=== PATIENT | female | born 1975 | race Hispanic/Latino ===

== ENCOUNTER 2024-06-20 14:22 | Outpatient (CLI) | payer OTHER, SELFPAY | END 2024-06-20 14:23 | disposition home or self-care (01) | LOC: ANHAUDIO 14:23 | PROVIDERS: PCP Family Medicine; Visit Provider Otolaryngology | DX: H91.90 Unspecified hearing loss, unspecified ear (principal) | CPT/HCPCS: 92557; 92567 ==

== ENCOUNTER 2024-12-25 01:39 | Day surgery (SDC) | payer OTHER, SELFPAY ==
[2024-12-08 14:00] VITALS: BMI 38.7
--- OUTSIDE RECORDS SUMMARY | 2024-12-25 01:42 | XMS_ITS | Encounter Summary ---
Author Organization [facility] Address [facility] [place] [address] Care Team Providers Care Golf Cart Assembler Name Role Phone Jennifer Gallo MD Unavailable [phone] Sumanth Dsouza DO Primary Care Provider Pratik Tian Primary Care Provi hafsa Encounter Details Date Type Department Care Team (Late st Contact Info) Description 03/13/2021 [employer] Message Enc [facility] Family Medicine - [place] [address], [address] [place] [address] Jamie, [facility] Provider Medication Social History Tobacco Use Types Packs/Day Years Used Date Smoking Tobacco: Former Cigarettes 0.5 15 Smokeless Tobacco: Never Alcohol Use Standard Drinks/Week Comments Yes 0 (1 standard drink = 0.6 oz pur e alcohol) AUDIT-C Answer Date Recorded Frequency of Alcohol Consumption Monthly or less 12/30/2018 Average Number of Drinks Not on file 019 Frequency of Binge Drinking Not on file 12/16 PHQ-2 Answer Date Recorded PHQ-2 Score - If the patient scores above 3, please move on to questions 3-9 0 01/23/2021 Comments No Sex and Gender Information Value Date Recorded Sex Assigned at Not on file Legal Sex Female 8:16 PM CDT Gender Identity Not on file Sexual Orientation Not on file documented as of this encounter Plan of Treatment Not on file documented as of this encounter Visit Diagnoses Not on filedocumented in this encounter Additional Health Concerns Assessment Noted Time PHQ-9 Depression Total Score: 5 01/24/20 21 11:39 AM PROJECT SURVEYOR documented as of this encounter Care Teams Golf Cart Assembler Relationship Specialty Start Date End Date Sumanth Dsouza DO [address] [facility] [address] [place] [id number] PCP - General FAMILY PRACTICE 01/23/21 04/21/21 Pratik Tian APNP [address] [facility] [address] [place] [id number] PCP - General Nurse Practitioner Family 04/22/21 Jennifer Gallo MD [address] [facility] [address] [place] [id number] Referring Physician GASTROENTEROLOGY 05/31/20 documented as of this encounter
--- OUTSIDE RECORDS SUMMARY | 2024-12-25 01:42 | XMS_ITS ---
Author Organization [facility] Address [address] [place] [address] Care Team Providers Care Blueprint Cutter Name Role Phone Remedios Springer Primary Care Provider REASON FOR VISIT FP 1 month follow up & refills Social History Sex Assigned At : Social History Observation Description Sex Assigned At Female Encounters Encounter Location Date Provider Diagnosis [address] [address] 10/27/2024 Remedios Springer Plan Of Treatment Next Appt Details Provider Name:Remedios claudio, 12/29/2024 01:40:00 PM, [address] [place] [address], [place], [address], Progress Notes * Marlin WHEELEROB:[birth year] (49 yo F)Acc No.[id number]:10/27/2024 Patient: Juarez VELÁSQUEZNicole EVANS Provider: Augie Springer DNP, PMHNP-BC, COM WRITER :1975 A ge:49 Y S ex:Female Date:10/27/2024 Address:[address] [facility], [address], [place], [place]-[address] Check In:02:20 PM GLAZE WIPER Subjective: * Chief Complaints: * F P 1 month follow up & refills * Medical History: * Surgical History: * Hospitalization/Major Diagno stic Procedure: * Medications: Objective: * Vitals: Assessment: Plan: * Treatment: * Procedure Codes: * * E WIPER Sign off status: Completed true * Provider: Augie Springer DNP, PMHNP-BC, COM WRITER Date: 1 12/28/2023 Generated for Printing/Faxing/eTransmitting on: 0 12/25/2024 01:42 AM GLAZE WIPER
--- OUTSIDE RECORDS SUMMARY | 2024-12-25 01:42 | XMS_ITS | Clinical Summary ---
Author Organization [facility] Address [facility] [place] [address] Care Team Providers Care Community Arts Worker Name Role Phone Jennifer Gallo MD Unavailable [phone] Pratik Tian Primary Care Provi hafsa Allergies Active Allergy Reactions Criticality Noted Date Comments Cephalexin Anaphylaxis,Cough,Itching High 02/11/2018 Medications loratadine 10 MG tabletIndications:E nvironmental allergies Take 1 tablet (10 mg total) by mouth daily. 90 tablet 1 9 Active hydrOXYzine 25 MG tabletIndications:E nvironmental allergies Take 1 tablet (25 mg total) by mouth 3 (three) times daily as needed for Itching. 30 tablet 9 Active VITAMINS 28-0.8 MG tabletIndications:O ther fatigue Take 1 tablet by mouth daily. 90 tablet 0 Active lamoTRIgine 25 MG tabletIndications:A nxiety with depression,Severe major depression with psychotic features (CMS/HCC HHS/HCC),Bipolar 2 disorder (CMS/HCC HHS/HCC) Take 2 tablets (50 mg total) by mouth 2 (two) times daily. 60 tablet 1 0 Active vitamin D2, ergocalciferol, 42292 UNITS capsuleIndications: Vitamin D deficiency Take 1 capsule (50,000 Units total) by mouth weekly. 12 capsule 3 0 Active OLANZapine 10 MG tabletIndications:S evere major depression with psychotic features (CMS/HCC HHS/HCC) Take 1 tablet (10 mg total) by mouth nightly at bedtime. 30 tablet 0 Active IBUPROFEN 800 MG tabletIndications:I rritable bowel syndrome, unspecified type TAKE 1 TABLET BY MOUTH EVERY 6 HOURS NEEDED FOR PAIN 90 tablet 1 0 Active ALPRAZolam 1 MG tabletIndications:A nxiety Take 1 tablet (1 mg total) by mouth 3 (three) times daily as needed. FOR ANXIETY 90 tablet 1 Active OMEPRAZOLE 40 MG capsuleIndications: Gastroesophageal reflux disease TAKE ONE CAPSULE BY MOUTH DAILY 90 capsule 3 1 Active escitalopram 20 MG tablet Take 20 mg by mouth daily. 1 Active Phentermine HCl (LOMAIRA) 8 MG TabIndications:Clas s 1 obesity due to excess calories without serious comorbidity with body mass index (BMI) of 33.0 to 33.9 in adult Take 8 mg by mouth 3 (three) times daily. 90 tablet 1 Active ONDANSETRON 4 MG disintegrating tabletIndications:N ausea DISSOLVE ONE TABLET BY MOUTH EVERY 8 HOURS NEEDED FOR NAUSEA 20 tablet 1 Active Hospital, Clinic, or Other Facility Administered Medication Ordered Dose Route Frequency Start Date End Date Status EPINEPHrine (EPIPEN) injection 0.3 mgIndications:Anaphylaxis, sequela 0.3 mg IM Once 03/23/2019 Active Active Problems Problem Noted Date Diagnosed Date Severe major depression with psychotic features ([facility]/HCC [facility]) 07/25/2020 Sleep difficulties 03/07/2020 Other fatigue 03/07/2020 Snoring 03/07/2020 Anxiety with depression 03/07/2020 Irritable bowel syndrome, unspecified type 09/05 Immunizations Name Administration Dates Next Due Afluria 36 MONTHS+ (Prefilled Syringe IIV4) 06/17 Social History Tobacco Use Types Packs/Day Years [...] on file Sexual Orientation Not on file Last Filed Vital Signs Vital Sign Reading Time Taken Comments Blood Pressure 130/80 04/25/2021 9:09 AM CDT Pulse 69 04/25/2021 9:09 AM CDT Temperature 36.2 C (97.2 F) 04/25/2021 9:09 AM CDT Respiratory Rate 18 04/25/2021 9:09 AM CDT Oxygen Saturation 97% 04/25/2021 9:09 AM CDT Inhaled Oxygen Concentration - - Weight 81 kg (178 lb 9.6 oz) 04/25/2021 9:09 AM CDT Height 152.4 cm (5') 04/25/2021 9:09 AM CDT Body Mass Index 34.88 04/25/2021 9:09 AM CDT Plan of Treatment Health Maintenance Due Date Last Done Comments Cervical Cancer Screening Pa p Smear (Age 30 to 64) Every 3 Years 1974 Colorectal Cancer Screening Colonoscopy (10 Years) 1974 PHQ-2 (Physician [place]) 1986 Hepatitis C 1992 DTaP, Tdap and Td Vaccines ( 1 - Tdap) 1993 Hepatitis B Vaccines (1 of 3 - 19+ 3-dose series) 1993 Cervical Cancer Screening Pa p with HPV Testing (Age 30 to 64) Every 5 Years 2004 Cervical Cancer Screening with HPV 2004 Annual Physical 12/30/2019 12/30/2018 Mammogram Screening 07/14/2021 07/14/2019 Zoster Vaccines (1 of 2) 2024 COVID-19 Vaccine (1 - 2023-2 5 season) 2024 Influenza Adult (#1) 2024 07/15/2019 PHQ-2 (Physician [place]) 11/15/2024 Meningococcal B Vaccine Aged Out No l onger eligible based on patient's age to complete this topic Meningococcal Vaccine Aged Out No shantelle nancy eligible based on patient's age to complete this topic Pneumococcal Vaccine: Pediat rics (0 to 5 Years) and At-Risk Patients (6 to 64 Years) Aged Out No longer eligi ble based on patient's age to complete this topic RSV Immunizations Under 20 Months Aged Out No longer eligible based on patient's age to complete this topic Procedures Procedure Name Priority Date/Time Associated Diagnosis Comments MAMMOGRAM GENERIC (SCAN ORDER) Routine 07/14/2019 from Last 3 Months or Most Recently Relevant to Health Maintenance Results * MAMMOGRAM (07/14/2019) Anatomical Region Laterality Modality Other us Documents Scanned SCANNING Edited Result - Final from Last 3 Months or Most Recently Relevant to Health Maintenance Care Teams Community Arts Worker Relationship Specialty Start Date End Date Pratik Tian APNP [address] [facility] [address] [place] [address] PCP - General Nurse Practitioner Family 04/22/21 Jennifer Gallo MD [address] [facility] [address] [place] [address] Referring Physician GASTROENTEROLOGY 05/31/20
--- OUTSIDE RECORDS SUMMARY | 2024-12-25 01:43 | XMS_ITS | Clinical Summary ---
Author Organization [place] [address] [facility] Address [address] [place] [id number] Care Team Providers Care Assembler [employer]iler Name Role Phone Gene Kenyon MD Primary Care Provider [phone] Remedios Springer NP Unavailable [phone] Allergies Active Allergy Reactions Criticality Noted Date Comments Cephalexin Hives Medium 11/13/2024 Medications ALPRAZolam (Xanax) 1 mg tablet Take 1 tablet (1 mg total) by mouth every 12 hours 8 Active ARIPiprazole (ABILIFY) 5 mg tablet Active atorvastatin (LIPITOR) 10 mg tablet Take 1 tablet (10 mg total) by mouth nightly Active doxepin (SINEquan) 10 mg capsule Active Trulicity 3 mg/0.5 mL pen injector Inject 0.5 mL (3 mg total) under the skin once a week FRIDAYS Active EPINEPHrine 0.3 mg/0.3 mL auto-injection syringe Inject 0.3 mL (0.3 mg total) into the muscle as instructed once 9 Active ergocalciferol (VITAMIN D) 50,000 unit capsule 0 Active escitalopram (LEXAPRO) 20 mg tablet Take 1 tablet every day by oral route. 1 Active famotidine (PEPCID) 20 mg tablet TK 1 T PO D FOR 5 DAYS 8 Active fexofenadine (AMNA) 60 mg tablet 1 tablet (60 mg total) 2 (two) times a day Active hydrOXYzine (ATARAX) 25 mg tablet Take 1 tablet (25 mg total) by mouth 4 (four) times a day 9 Active lamoTRIgine (LaMICtal) 100 mg tablet daily Active lisinopriL (PRINIVIL,ZEST RIL) 2.5 mg tablet Active metFORMIN (GLUCOPHAGE) 1,000 mg tablet Take 1 tablet twice a day by oral route. Active OLANZapine (ZyPREXA) 10 mg tablet Take 1 tablet (10 mg total) by mouth daily 1 Active omeprazole (PriLOSEC) 40 mg capsule Take 1 capsule (40 mg total) by mouth daily 1 Active blood-glucose sensor (FreeStyle Luly 3 Sensor) device Activ e docusate sodium (COLACE) 100 mg capsuleIndicat ions:constipat ion Take 1 capsule (100 mg total) by mouth 2 (two) times a day as needed for constipation 14 capsule 5 Active HYDROcodone-ac etaminophen (NORCO) 5-325 mg per tabletIndicati ons:Pain Take 1 tablet by mouth every 4 (four) hours as needed for pain (pain) 8 tablet 5 Active medroxyPROGEST ERone (PROVERA) 5 mg tablet Take 2 tablets (10 mg total) by mouth 2 (two) times a day for 10 days 40 tablet 4 025 Discontin ued(Stop Taking at Discharge ) ketorolac (TORADOL) 10 mg tablet Take 1 tablet (10 mg total) by mouth every 6 (six) hours as needed for pain 20 tablet 4 025 Discontin ued(Stop Taking at Discharge ) Active Problems Problem Noted Date Diagnosed Date Menorrhagia with regular cycle 12/13/2024 Bipolar I disorder 11/20/2024 Irritable bowel syndrome 09/05/2019 JOVI (generalized anxiety disorder) 12/01/2018 Gastroesophageal reflux disease without esophagi tis 12/01/2018 Resolved Problems Problem Noted Date Diagnosed Date Resolved Date Amenorrhea 09/10/2020 12/13/2024 Overview (11/20/2024): Amenorrhea, unspecified; Severity: Moderate Progress: Stable Added By: Rai Marcelo Add to Current Problems: YES ProblemStatus: Current Severe major depression with psychotic features 07/25/2020 11/20/2024 Encounters Date Type Department Care Team Description 12/13/2024 7:30 AM BOX COVERER HAND - 12/13/2024 9:30 AM BOX COVERER HAND Surgery [facility] OR [address] [place] [address] Trina Fabian MD HYSTEROSCOPY, DILATION WITH hydrothermal ablation, attempted NOVASURE ABLATION, 12/13/2024 7:29 AM BOX COVERER HAND Anesthesia Event [facility] OR [address] [place] [address] Marshall Farrell MD Boivin, James R., MD 12/13/2024 5:39 AM BOX COVERER HAND - 12/13/2024 12:17 PM BOX COVERER HAND Hospital Encounter [facility] OR [address] [place] [id number] Trina Fabian MD History of menorrhagia; Admission for sterilization Discharge Disposition: Discharge to home or self care 12/11/2024 2:20 PM BOX COVERER HAND Pre-Admission Testing [facility] Pre Admit Testing [address] [place] [id number] Pre-op testing (Primary Dx) 11/13/2024 10:03 PM BOX COVERER HAND - 11/14/2024 Emergency [facility] Emergency Department [address] [place] [id number] Vaginal bleeding (Primary Dx); Uterine mass; Ovarian mass Discharge Disposition: Discharge to home or self care from Last 3 Months Surgical History Surgery Date Site/Laterality Comments REDUCTION MAMMAPLASTY early 20s LIPOSUCTION x5 ABDOMINOPLASTY early 20s Medical History Medical History Date Comments Amenorrhea 09/10/2020 Amenorrhea, unsp ecified; Severity: Moderate Progress: Stable Added By: Rai Marcelo Add to Current Problems: YES ProblemStatus: Current Bipolar I disorder (HCC) 11/20/2024 JOVI (generalized anxiety disorder) 12/01/2018 Gastroesophageal reflux dise ase without esophagitis 12/01/2018 Irritable bowel syndrome 09/05/2019 Severe major depression with psychotic features (HCC) 07/25/2020 PONV (postoperative nausea and vomiting) Type 2 diabetes mellitus (HCC) Anxiety Motion sickness Social History Tobacco Use Types Packs/Day Years Used Date Smoking Tobacco: Former Cigarettes 0.5 29 S tarted: 1985 Smokeless Tobacco: Never AUDIT-C Answer Date Recorded Q1: How often do you have a drink containing alc ohol? 2-4 times a month 12/13/2024 Q2: How many drinks containi ng alcohol do you have on a typical day when you are drinking? 1 or 2 12/13/2024 Q3: How often do you have si x or more drinks on one occasion? Never 12/13/2024 Personal Safety Answer Date Recorded Have you ever been in or are you currently in a harmful physical or emotional relationship or is someone making you feel afraid or unsafe? Denies 12/13/2024 Comments No Sex and Gender Information Value Date Recorded Sex Assigned at Not on file Legal Sex Female 8:34 PM BOX COVERER HAND Gender Identity Not on file Sexual Orientation Not on file Obstetrics History Para Term AB IAB SAB Ectopic Multiple Livin g Live Births 1 1 1 Date Outcome GA Total Labor Labor/2nd/3rd Weight Sex Type Anes PTL Heidy A1 A5 Name Clin Term Last Filed Vital Signs Vital Sign Reading Time Taken Comments Blood Pressure 122/82 12/13/2024 12:10 PM BOX COVERER HAND Pulse 85 12/13/2024 12:10 PM BOX COVERER HAND Temperature 36.8 C (98.2 F) 12/13/2024 10:40 AM BOX COVERER HAND Respiratory Rate 16 12/13/2024 12:1 0 PM BOX COVERER HAND Oxygen Saturation 98% 12/13/2024 12: 10 PM BOX COVERER HAND Inhaled Oxygen Concentration - - Weight 92.4 kg (203 lb 11.2 oz) 12/13/2024 5:49 AM BOX COVERER HAND Height 152.4 cm (5') 12/13/2024 5:49 AM BOX COVERER HAND Body Mass Index 39.78 12/13/2024 5:49 AM BOX COVERER HAND Plan of Treatment Health Maintenance Due Date Last Done Comments Cervical Cancer Screening 1975 Colon Cancer Screening-Colonoscopy 1975 Depression Screening 1975 Hepatitis C Screening 1974 Hepatitis B Screening 1992 Regular Well Visit/Exam 18-64 1992 Zoster Vaccine (2 of 2) 07/12/2024 05/17/2024 Influenza Vaccine (#1) 2024 07/15/2019 Breast Cancer Screening-Mammogram 03/16/2025 03/16/2024, 07/14/2019, 03/28/2018, Additional history exists DTaP/Tdap/Td Vaccine (2 - Td or Tdap) 05/17/2034 05/17/2024 Pneumococcal vaccine <65 Aged Out No longer eligible based on patient's age to complete this topic Procedures Procedure Name Priority Date/Time Associated Diagnosis Comments POCT GLUCOSE DEVICE Routine 12/13/2024 9 :29 AM BOX COVERER HAND SURGICAL PATHOLOGY Routine 12/13/2024 8: 12 AM BOX COVERER HAND History of menorrhagia Admission for sterilization DC AN PROCEDURE PLACEHOLDER Routine 12/13/2024 7:43 AM BOX COVERER HAND DC AN ELECTIVE ENDOTRACHEAL AIRWAY Routine 12/13/2024 7:43 AM BOX COVERER HAND LAPAROSCOPIC SALPINGECTOMY 12/13/2024 7:29 AM BOX COVERER HAND MENORRHAGIA,UNDESIR ED FERTILITY ABLATION UTERINE HYSTEROSCOPY - NOVASURE 12/13/2024 7:29 AM BOX COVERER HAND MENORRHAGIA,UNDESIR ED FERTILITY POCT GLUCOSE DEVICE Routine 12/13/2024 7 :20 AM BOX COVERER HAND POCT HCG, URINE Routine 12/13/2024 6:30 AM BOX COVERER HAND ANTIBODY SCREEN Routine 12/11/2024 2:39 PM BOX COVERER HAND Pre-op testing ABO/RH Routine 12/11/2024 2:39 PM BOX COVERER HAND Pre-op testing CBC WITHOUT DIFFERENTIAL Routine 12/11/2024 2:39 PM BOX COVERER HAND Pre-op testing TYPE AND SCREEN Routine 12/11/2024 2:39 PM BOX COVERER HAND Pre-op testing CT ABDOMEN PELVIS W CONTRAST ED 11/13/2024 11:05 PM BOX COVERER HAND POCT HCG, URINE Routine 11/13/2024 10:45 PM BOX COVERER HAND B ABO / RH CONFIRMATION TESTING STAT 11/13/2024 10:15 PM BOX COVERER HAND EGFR STAT 11/13/2024 7:39 PM BOX COVERER HAND DIFFERENTIAL AUTO STAT 11/13/2024 7:3 9 PM BOX COVERER HAND ANTIBODY SCREEN Timed 11/13/2024 7:39 PM BOX COVERER HAND ABO/RH Timed 11/13/2024 7:39 PM BOX COVERER HAND TYPE AND SCREEN Timed 11/13/2024 7:39 PM BOX COVERER HAND COMPREHENSIVE METABOLIC PANEL STAT 11/13/2024 7:39 PM BOX COVERER HAND CBC WITH AUTO DIFFERENTIAL STAT 11/13/2024 7:39 PM BOX COVERER HAND SCREENING MAMMOGRAM BILATERAL W EL Schedule Routine, Read Routine (OP Routine) 03/16/2024 2:59 PM CDT Encounter for other screening for malignant neoplasm of breast from Last 3 Months or Most Recently Relevant to Health Maintenance Results * POCT glucose (12/13/2024 9:29 AM BOX COVERER HAND) Glucose, POC 159 70 - 199 mg/dL Comment:Testing performed by : [facility], [address] [place] [address]., [id number] Glucose comment 1 Use This Result CESAR PEREZ Comment:Testing performed by : [facility], [address] [place] [address]., [id number] Blood 12/13/2024 9:29 AM BOX COVERER HAND 12/13/2024 9:29 AM BOX COVERER HAND us Trina Fabian MD LAB POCT ORDERABLES - DEVICE Fi nal Result CESAR PEREZ [address] [facility] Department [place] [address] * Surgical pathology (12/13/2024 8:12 AM BOX COVERER HAND) Tissue (Fallopian tube, sterilization) 12/13/2024 8:12 AM BOX COVERER HAND Narrative PATHOLOGY [facility] - 12/14/2024 4:25 PM BOX COVERER HAND [facility] Department of Pathology [address] [place] [address] Note to Patients: This report may contain a detailed description of human tissue sent by a health care provider to the laboratory for pathologic evaluation. The content of this report is essential for diagnosis and may provide important critical findings. This information may be unfamiliar to patients to review without a medical professional present. It is advised that the patient review this report in the presence of a health care provider who can answer questions and explain the details. Final Report Patient Name: LAURA STYLES : 1975 (Age: 49) Gender: F Address: [address] [place] [address] Hospital #: [id number] Service: Surgery Location: Patient Type: [facility] OUTPATIENT Taken: 12/13/2024 Received: 12/13/2024 Accessioned: 12/13/2024 Reported: 12/14/2024 Physician(s): Raphael Meléndez M.D. Diagnosis: Fallopian tubes, bilateral, salpingectomy - One fallopian tube with paratubal cyst - Other fallopian tube with no histopathologic abnormality - Complete cross sections identified x 2 Veronique Salazar MD PhD Report Electronically Reviewed and Signed Out By Veronique Salazar MD PhD 12/14/2024 16:25:59 Specimen(s) Received: A: bilateral fallopian tubes Microscopic Description: Unless gross-only is specified, the final diagnosis for each specimen is based on a microscopic examination of each tissue sample. Clinical History: The patient is a 49-year-old woman with menorrhagia and undesired fertility. Operative procedure: Hysteroscopy, dilation and curettage with ablation, and bilateral salpingectomy. Gross Description Received in a single formalin filled container labeled with the patient's identifiers and bilateral fallopian tubes are two fragmented, fimbriated fallopian tubes (10.8 cm in combined length by 0.5 cm in diameter and 9.6 cm in combined length by 0.5 cm in diameter). One of the fimbriated portions of tubing has an attached, collapsed saccular structure of glistening, rubbery, pink-borja membranous tissue (5.0 x 3.5 x 1.2 cm). There are no papillary projections or solid mass areas grossly appreciated. Sections show pinpoint lumens and membranous tissue. In 3 cassettes as follows: A1-A2 Fallopian tubes, A3 Membranous tissue. Jar 1. [id number]/12/13/2024 12:00 Niurka Cortes MS, PA (ASC Microscopic slide review and interpretation for this case was performed at [facility], Department of Surgical Pathology, [address] [facility] [place], [address], [place] [id number] CLIA # [id number] us Trina Fabian MD LAB PATHOLOGY ORDERABLES Final Result PATHOLOGY [facility] * DC AN ELECTIVE ENDOTRACHEAL AIRWAY, DC AN PROCEDURE PLACEHOLDER (12/13/2024 7:43 AM BOX COVERER HAND) Narrative Tai Roberts CRNA - 12/13/2024 7:43 AM BOX COVERER HAND Tai Roberts CRNA 12/13/2024 7:43 AM Airway Patient location: OR Urgency: elective Indications for airway management: anesthesia Difficult airway: no Staff: Placed by: PHOTOGRAPHIC COLORIST: Tai Roberts CRNA Emergent airway documentation: Risks and benefits discussed: yes Consent obtained: yes Consent given by: patient Airway prep: Preoxygenated: yes Patient position: sniffing Mask difficulty assessment: 1 - vent by mask Sedation level during airway: GA Final airway details: Final airway type: endotracheal airway Tube type: ETT ETT size: 8.0 mm Cuffed: yes Technique used for successful ETT placement: direct laryngoscopy Devices/Methods used in placement: stylet Insertion site: oral Blade type: Squires Blade size: 2 Cormack-Lehane (direct): grade I - full view of glottis Cuff volume: 7 mL Cuff inflated with: air ETT to teeth: 23 cm Placement verified by: auscultation and CO2 detection Airway secured with: other (pink tape) Number of attempts: 1 us Marshall Farrell MD ANESTHESIA ORDERABLES Final Resu lt * POCT glucose (12/13/2024 7:20 AM BOX COVERER HAND) Glucose, POC 123 70 - 199 mg/dL Comment:Testing performed by : [address] [address] Blood 12/13/2024 7:20 AM BOX COVERER HAND 12/13/2024 7:20 AM BOX COVERER HAND Trina Fabian MD LAB POCT ORDERABLES - DEVICE Fi nal Result Performing Organization Address [facility]/ZIP Co de Phone Number [id number] [place] [address] * POCT hCG, urine (12/13/2024 6:30 AM BOX COVERER HAND) [facility] HCG, ur, POC Negative Negative Lot Number [id number] QC Backgroud Clear Acceptable QC Control Line Acceptable Urine 12/13/2024 6:30 AM BOX COVERER HAND Jemal Gong MD POINT OF CARE TEST ORDERABLES Final Result * ABO/Rh (12/11/2024 2:39 PM BOX COVERER HAND) [facility] ABO/Rh O Positive Comment:Testing performed by : [facility], [address] [place] [address]., [address] Blood 12/11/2024 2:39 PM BOX COVERER HAND 12/11/2024 2:43 PM BOX COVERER HAND Narrative CESAR - 12/11/2024 3:27 PM BOX COVERER HAND PRE SURGICAL TESTING ONLY--12/13/2024-HYSTEROSCOPY, DILATION AND CURETTAGE WITH NOVASURE ABLATION: LAPAROSCOPIC BILATERAL SALPINGECTOMY: -Surgeons and Role: * Trina Fabian MD - Primary- Has the patient had Daratumumab or Isatuximab in the past 6 months?->Unknown Trina Fabian MD LAB BLOOD BANK TEST ORDERABLES Final Result Performing Organization Address [facility]/ZIP Co de Phone Number [address] [place] [address] * CBC without differential (12/11/2024 2:39 PM BOX COVERER HAND) [facility] WBC 8.4 3.8 - 9.9 K/cumm Comment:Testing performed by : [address], [address] Hgb 13.2 11.9 - 15.5 g/dL CESAR Comment:Testing performed by : [address], [address] Hct 39.8 35.6 - 45.5 % CESAR Comment:Testing performed by : [address], [address] Plt 381 150 - 400 K/cumm CESAR Comment:Testing performed by : [address], [address] MPV 9.6 9.1 - 12.3 fL CESAR Comment:Testing performed by : [address], [address] RBC 4.73 3.90 - 5.20 M/cumm CESAR Comment:Testing performed by : [address], [address] MCV 84.1 81.3 - 96.4 fL CESAR Comment:Testing performed by : [address], [address] MCH 27.9 27.1 - 33.3 pg CESAR Comment:Testing performed by : [address], [address] MCHC 33.2 32.3 - 35.7 g/dL CESAR Comment:Testing performed by : [address], [address] RDW CV 12.1 11.1 - 14.9 % CESAR Comment:Testing performed by : [address], [address] RDW SD 36.7 35.7 - 48.1 fL CESAR Comment:Testing performed by : [address], [address] NRBC abs 0.00 0.00 - 0.01 K/cumm CESAR Comment:Testing performed by : [facility], [address] [place] [address]., [address] Blood 12/11/2024 2:39 PM BOX COVERER HAND 12/11/2024 2:43 PM BOX COVERER HAND Narrative CESAR - 12/11/2024 2:45 PM BOX COVERER HAND PRE SURGICAL TESTING ONLY--12/13/2024-HYSTEROSCOPY, DILATION AND CURETTAGE WITH NOVASURE ABLATION: LAPAROSCOPIC BILATERAL SALPINGECTOMY: -Surgeons and Role: * Trina Fabian MD - Primary-@ANPROCEDURE@ Trina Fabian MD LAB BLOOD ORDERABLES Final Resu lt Performing Organization Address [facility] Co de Phone Number TULIONAT [address] [facility] [place] [address] * Antibody screen (12/11/2024 2:39 PM BOX COVERER HAND) Luis Fernando, indirect, Gel Interpretation Negative ABSC Comment:Testing performed by : [facility], [address] [place] [address]., [address] Blood 12/11/2024 2:39 PM BOX COVERER HAND 12/11/2024 2:43 PM BOX COVERER HAND Narrative CESAR - 12/11/2024 3:27 PM BOX COVERER HAND PRE SURGICAL TESTING ONLY--12/13/2024-HYSTEROSCOPY, DILATION AND CURETTAGE WITH NOVASURE ABLATION: LAPAROSCOPIC BILATERAL SALPINGECTOMY: -Surgeons and Role: * Trina Fabian MD - Primary- Has the patient had Daratumumab or Isatuximab in the past 6 months?->Unknown Trina Fabian MD LAB BLOOD BANK TEST ORDERABLES Final Result Performing Organization Address [facility] Co de Phone Number [place] [phone] [facility] [place] [address] * CT Abdomen Pelvis W Contrast (11/13/2024 11:05 PM BOX COVERER HAND) Anatomical Region Laterality Modality Body N/A Computed Tomogra phy 11/13/2024 11:0 9 PM BOX COVERER HAND Narrative 11/13/2024 11:16 PM BOX COVERER HAND EXAM DESCRIPTION: CT ABDOMEN PELVIS W CONTRAST REASON FOR STUDY: vaginal bleeding Pt states has been having vaginal bleeding on and off x 3 months, pt states is bleeding through a tampon every 30 mins, pt states has been seen by OB for this and was told to come to ED if bleeding was that bad , pt states bleeding was stopped with meds twice , pt states is supposed to have a procedure in Nov but I can't wait TECHNIQUE: CT scan of the abdomen and pelvis performed with intravenous and without oral contrast using helical scanning technique with dynamic intravenous contrast injection. Reconstructed coronal and sagittal MPR images reviewed. All images stored on PACS. Automated exposure control was used as a dose optimization technique for this examination. CONTRAST TYPE/DOSE: 100mL of IOVERSOL 350 MG IODINE/ML INTRAVENOUS SYRINGE injected via intravenous COMPARISON: None FINDINGS: LOWER CHEST: No significant pulmonary abnormalities. No effusion. LIVER: 4 cm simple appearing cyst is seen in the left lobe of the liver. The liver otherwise appears unremarkable. GALLBLADDER: Unremarkable BILE DUCTS: No intrahepatic or extrahepatic ductal dilatation. SPLEEN: Normal size. No focal lesions. PANCREAS: No identified cystic or solid masses. No significant calcifications. No adjacent inflammation or peripancreatic fluid collections. Pancreatic duct not dilated. ADRENALS: Normal. KIDNEYS/URINARY TRACT: No identified significant cystic or solid masses. No visualized stones. No hydronephrosis or hydroureter. Symmetric enhancement. The bladder is decompressed and appears unremarkable GI: No dilated bowel loops. No obvious wall thickening. Normal appendix. No significant diverticular disease. PERITONEUM: No ascites or free air. RETROPERITONEUM: No mass or adenopathy. REPRODUCTIVE: The uterus appears enlarged measuring 13 cm X 10 cm X 8.6 cm. The uterus appears thickened and heterogeneous. While this could represent fibroids, endometrial neoplasia could be a concern. The addition, there is 8 cm cystic appearing mass to the right of the upper uterus which may represent right ovarian cysts. Ovarian neoplasia is a concern. VASCULATURE: No abdominal aortic aneurysm. Mesenteric vessels appear to be perfused. MUSCULOSKELETAL: No significant abnormality. OTHER: No other abnormality. IMPRESSION: Enlarged heterogeneous uterus. While this could represent fibroids, endometrial neoplasia could be a concern. 8 cm cystic appearing mass to the right of the upper uterus may represent right ovarian cyst. Ovarian neoplasia is a concern. Neurodiagnostic Tech evaluation of these findings is recommended. Simple appearing 4 cm cyst left lobe of the liver. THIS IS AN ELECTRONICALLY VERIFIED FINAL REPORT 11/13/2024 11:16 PM - Electronically signed by Lokesh Dotson M.D. KH: SONIA Report ID: [id number] Reading Location: [place] [address] Procedure Note Lokesh Dotson MD - 11/13/2024 EXAM DESCRIPTION: CT ABDOMEN PELVIS W CONTRAST REASON FOR STUDY: vaginal bleeding Pt states has been having vaginal bleeding on and off x 3 months, pt states is bleeding through a tampon every 30 mins, pt states has been seenby OB for this and was told to come to ED if bleeding was that bad , ptstates bleeding was stopped with meds twice , pt states is supposed to have a procedure in Nov but I can't wait TECHNIQUE: CT scan of the abdomen and pelvis performed with intravenousand without oral contrast using helical scanning technique with dynamic intravenous contrast injection. Reconstructed coronal and sagittal MPRimages reviewed. All images stored on PACS. Automated exposure control was usedas a dose optimization technique for this examination. CONTRAST TYPE/DOSE: 100mL of IOVERSOL 350 MG IODINE/ML INTRAVENOUSSYRINGE injected via intravenous COMPARISON: None FINDINGS: LOWER CHEST: No significant pulmonary abnormalities. Noeffusion. LIVER: 4 cm simple appearing cyst is seen in the left lobe of the liver. The liver otherwise appears unremarkable. GALLBLADDER: Unremarkable BILE DUCTS: No intrahepatic or extrahepatic ductal dilatation. SPLEEN: Normal size. No focal lesions. PANCREAS: No identified cystic or solid masses. No significant calcifications. No adjacent inflammation or peripancreatic fluidcollections. Pancreatic duct not dilated. ADRENALS: Normal. KIDNEYS/URINARY TRACT: No identified significant cystic or solid masses.No visualized stones. No hydronephrosis or hydroureter. Symmetricenhancement. The bladder is decompressed and appears unremarkable GI: No dilated bowel loops. No obvious wall thickening. Normalappendix. No significant diverticular disease. PERITONEUM: No ascites or free air. RETROPERITONEUM: No mass or adenopathy. REPRODUCTIVE: The uterus appears enlarged measuring 13 cm X 10 cm X 8.6cm. The uterus appears thickened and heterogeneous. While this couldrepresent fibroids, endometrial neoplasia could be a concern. The addition, thereis 8 cm cystic appearing mass to the right of the upper uterus which mayrepresent right ovarian cysts. Ovarian neoplasia is a concern. VASCULATURE: No abdominal aortic aneurysm. Mesenteric vessels appearto be perfused. MUSCULOSKELETAL: No significant abnormality. OTHER: No other abnormality. IMPRESSION: Enlarged heterogeneous uterus. While this could represent fibroids, endometrial neoplasia could be a concern. 8 cm cystic appearing mass to the right of the upper uterus may represent right ovarian cyst. Ovarian neoplasia is a concern. Neurodiagnostic Tech evaluation of these findings is recommended. Simple appearing 4 cm cyst left lobe of the liver. THIS IS AN ELECTRONICALLY VERIFIED FINAL REPORT 11/13/2024 11:16 PM - Electronically signed by Lokesh Dotson M.D. KH: SONIA Report ID: [id number] Reading Location: [place] [address] Luis A Guzman NP IMG CT PROCEDURES Final Result * POCT hCG, urine (11/13/2024 10:45 PM BOX COVERER HAND) HCG, ur, POC Negative Negative Lot Number [id number] QC Backgroud Clear Acceptable QC Control Line Acceptable Urine 11/13/2024 10:4 5 PM BOX COVERER HAND Luis A Guzman NP POINT OF CARE TEST ORDERABLES Fi nal Result * ABO / Rh Confirmation Testing (11/13/2024 10:15 PM BOX COVERER HAND) ABO/Rh Confirmation O Positive B Comment:Testing performed by : [facility], [address] [place] [address]., [id number] Blood 11/13/2024 10:1 5 PM BOX C[facility]ER HAND 11/13/2024 10:20 PM BOX C[employer]ER HAND Luis A Guzman NP LAB BLOOD ORDERABLES Final Resul t [facility] [address] [facility] Department [place] [address] [facility] * eGFR (11/13/2024 7:39 PM BOX COVERER HAND) eGFR >90 >=60 mL/min/1. 73 m2 Comment: Interpretive Data Reference Interval Normal >/= 90 mL/min/1.73m2 Mildly decreased* 60 - 89 mL/min/1.73m2 Mildly to moderately decreased 45 - 59 mL/min/1.73m2 Moderately to severely decreased 30 - 44 mL/min/1.73m2 Severely decreased 15 - 29 mL/min/1.73m2 Kidney Failure < 15 mL/min/1.73m2 *Relative to young adult level Estimated glomerular filtration rate is determined by the 2020 CKD-EPI equation recommended by the National Kidney [employer] (A Unifying Approach to GFR Estimation: Recommendations of the NKF-ASK Task Force on Reassessing the Inclusion of Race in Diagnosing Kidney Disease, JASN 2020). The CKD-EPI equation should not be used for patients with unstable renal function and has not been validated in children and those over 70. Current interpretive data was last reviewed 2021. Testing performed by: [address] [address] Blood 11/13/2024 7:39 PM BOX C[employer]ER HAND 11/13/2024 7:41 PM BOX COVERER HAND us Luis A Guzman NP LAB BLOOD ORDERABLES Final Resul t [facility] [address] [facility] Department [place] [address] * (ABNORMAL) Differential, auto (11/13/2024 7:39 PM BOX COVERER HAND) Pathologist [facility] Neutrophil abs 6.8(H) 1.5 - 6.5 K/cumm Comment:Testing performed by : [address] [address] Imm gran abs 0.0 0.0 - 0.1 K/cumm CESAR PEREZ Comment:Testing performed by : [address] [address] Lymphocyte abs 3.2 0.8 - 3.3 K/cumm CESAR PEREZ Comment:Testing performed by : [address] [address] Monocyte abs 0.4 0.2 - 0.8 K/cumm CESAR Comment:Testing performed by : [address] [address] Eosinophil abs 0.2 0.0 - 0.5 K/cumm CESAR Comment:Testing performed by : [address] [address] Basophil abs 0.1 0.0 - 0.1 K/cumm CESAR Comment:Testing performed by : [address] [address] Neutrophil pct 63.6 % [facility] Comment: Interpretive Data Percent cell count reference ranges are not reported, since discordance with absolute values may lead to misinterpretation of CBC data. Current Interpretive Data was last revised on 2018. Testing performed by: [address] [address] Imm gran pct 0.4 % [facility] Comment: Interpretive Data Percent cell count reference ranges are not reported, since discordance with absolute values may lead to misinterpretation of CBC data. Current Interpretive Data was last revised on 2018. Testing performed by: [address] [address] Lymphocyte pct 29.5 % [facility] Comment: Interpretive Data Percent cell count reference ranges are not reported, since discordance with absolute values may lead to misinterpretation of CBC data. Current Interpretive Data was last revised on 2018. Testing performed by: [address] [address] Monocyte pct 3.7 % [facility] Comment: Interpretive Data Percent cell count reference ranges are not reported, since discordance with absolute values may lead to misinterpretation of CBC data. Current Interpretive Data was last revised on 2018. Testing performed by: [address] [address] Eosinophil pct 2.1 % [facility] Comment: Interpretive Data Percent cell count reference ranges are not reported, since discordance with absolute values may lead to misinterpretation of CBC data. Current Interpretive Data was last revised on 2018. Testing performed by: [address] [address] Basophil pct 0.7 % CESAR PEREZ Comment: Interpretive Data Percent cell count reference ranges are not reported, since discordance with absolute values may lead to misinterpretation of CBC data. Current Interpretive Data was last revised on 2018. Testing performed by: [address] [address] Blood 11/13/2024 7:39 PM BOX C[employer]ER HAND 11/13/2024 7:41 PM BOX COVERER HAND us Luis A Guzman NP LAB BLOOD ORDERABLES Final Resul t CESAR PEREZ [facility] [facility] Department [place] [address] * (ABNORMAL) CBC with auto differential (11/13/2024 7:39 PM BOX COVERER HAND) WBC 10.7(H) 3.8 - 9.9 K/cumm Comment:Testing performed by : [address] [address] Hgb 12.5 11.9 - 15.5 g/dL CESAR PEREZ Comment:Testing performed by : [address] [address] Hct 37.9 35.6 - 45.5 % CESAR PEREZ Comment:Testing performed by : [address] [address] Plt 354 150 - 400 K/cumm CESAR PEREZ Comment:Testing performed by : [address] [address] MPV 9.9 9.1 - 12.3 fL CESAR PEREZ Comment:Testing performed by : [address] [address] RBC 4.39 3.90 - 5.20 M/cumm CESAR PEREZ Comment:Testing performed by : [address] [address] MCV 86.3 81.3 - 96.4 fL CESAR PEREZ Comment:Testing performed by : [address] [address] MCH 28.5 27.1 - 33.3 pg CESAR PEREZ Comment:Testing performed by : [address] [address] MCHC 33.0 32.3 - 35.7 g/dL CESAR PEREZ Comment:Testing performed by : [address] [address] RDW CV 12.2 11.1 - 14.9 % CESAR Comment:Testing performed by : [address] [address] RDW SD 38.4 35.7 - 48.1 fL CESAR Comment:Testing performed by : [address] [address] NRBC abs 0.00 0.00 - 0.01 K/cumm CESAR Comment:Testing performed by : [address] [address] Blood 11/13/2024 7:39 PM BOX COVERER HAND 11/13/2024 7:41 PM BOX COVERER HAND Luis A Guzman NP LAB BLOOD ORDERABLES Final Resul t Performing Organization Address [facility] de Phone Number [facility] [address] [facility] Department [place] [address] * ABO/Rh (11/13/2024 7:39 PM BOX COVERER HAND) ABO/Rh O Positive Comment:Testing performed by : [address] [address] Blood 11/13/2024 7:39 PM BOX COVERER HAND 11/13/2024 7:41 PM BOX COVERER HAND Narrative CESAR - 11/13/2024 8:50 PM BOX COVERER HAND Has the patient had Daratumumab or Isatuximab in the past 6 months?->Unknown Luis A Guzman NP LAB BLOOD BANK TEST ORDERABLES F inal Result Performing Organization Address City/[facility] de Phone Number [address] [place] [address] * Antibody screen (11/13/2024 7:39 PM BOX COVERER HAND) Pathologist [facility] Luis Fernando, indirect, Gel Interpretation Negative ABSC Comment:Testing performed by : [address] [address] Blood 11/13/2024 7:39 PM BOX COVERER HAND 11/13/2024 7:41 PM BOX COVERER HAND Narrative [facility] - 11/13/2024 8:50 PM BOX COVERER HAND Has the patient had Daratumumab or Isatuximab in the past 6 months?->Unknown Luis A Guzman NP LAB BLOOD BANK TEST ORDERABLES F inal Result [address] [address] * Comprehensive metabolic panel (11/13/2024 7:39 PM BOX COVERER HAND) [facility] Sodium 139 135 - 145 mmol/L Comment:Testing performed by : [address] [address] Potassium, pl 3.7 3.3 - 4.9 mmol/L CESAR Comment:Testing performed by : [address] [address] Chloride 105 97 - 110 mmol/L CESAR Comment:Testing performed by : [address] [address] CO2 22 22 - 32 mmol/L CESAR Comment:Testing performed by : [address] [address] Anion gap 12 2 - 15 mmol/L CESAR Comment:Testing performed by : [address] [address] BUN 16 6 - 25 mg/dL CESAR Comment:Testing performed by : [address] [address] Creatinine 0.70 0.60 - 1.10 mg/dL CESAR Comment:Testing performed by : [address] [address] Glucose 191 70 - 199 mg/dL CESAR Comment: Interpretive Data Fasting glucose >/= 126 mg/dl is diagnostic for diabetes. Fasting is defined as no caloric intake for at least 8 hours. Fasting glucose between 100 mg/dl to 125 mg/dl is diagnostic of prediabetes. In a patient with classic symptoms of hyperglycemia or hyperglycemic crisis, a random glucose >/= 200 mg/dl is diagnostic for diabetes. In the absence of unequivocal hyperglycemia, results should be confirmed by repeat testing. The classification and Diagnosis of Diabetes Diabetes Care 2021; 46: S19-S40. Current interpretive data was last revised 2022. Testing performed by: [address] [address] Calcium 9.1 8.5 - 10.3 mg/dL CESAR Comment:Testing performed by : [address] [address] Bilirubin, total 0.3 0.1 - 1.2 mg/dL CESAR Comment:Testing performed by : [address] [address] Protein, pl 7.4 6.5 - 8.5 g/dL CESAR Comment:Testing performed by : [address] [address] Albumin 4.3 3.5 - 5.0 g/dL CESAR Comment:Testing performed by : [address] [address] Alk phos 68 40 - 130 Units/L CESAR Comment:Testing performed by : [address] [address] ALT 26 7 - 45 Units/L [facility] Comment:Testing performed by : [address] [address] AST 20 10 - 45 Units/L CESAR Comment:Testing performed by : [address] [address] Blood 11/13/2024 7:39 PM BOX COVERER HAND 11/13/2024 7:41 PM BOX COVERER HAND us Luis A Guzman NP LAB BLOOD ORDERABLES Final Resul t [facility] [address] [facility] Department [place] [address] * Screening Mammogram Bilateral W El (03/16/2024 2:59 PM CDT) Anatomical Region Laterality Modality Breast Bilateral Mammography Impressions 03/16/2024 3:01 PM CDT BI-RADS ATLAS category (overall): 2 - Benign There is no mammographic evidence of malignancy. A 1 year screening mammogram is recommended. The patient has been or will be contacted. We recommend annual screening mammography for women at average risk of breast cancer beginning at age 40, based on guidelines of the [employer] (ACR Practice Parameter for the Performance of Screening and Diagnostic Mammography) and [employer]. For women with and elevated risk of breast cancer, please refer to the ACR Practice Parameter for specific screening recommendations. The patient will be entered into a reminder system with a target due date of 1 year for her next screening exam. Narrative 03/16/2024 3:01 PM CDT Screening Mammogram Bilateral W El: 03/16/24 The study was acquired using full field digital technology and interpreted from soft copy. 2D digital mammographic views, as well as 3D digital tomosynthesis were performed in the CC and MLO projections. CLINICAL: Encounter for other screening for malignant neoplasm of breast. No relevant medical history has been documented for this patient. No known family history of breast cancer. COMPARISONS: 07/14/2019 Screening Mammogram 2D Bilateral 03/28/2018 Screening Mammogram Bilateral W El BREAST TISSUE: The breasts have scattered areas of fibroglandular density. FINDINGS: There are stable post operative changes of reduction mammoplasty in both breasts. There is no new suspicious finding in either breast on mammogram. us Jackie Walker NP IMG MAMMO PROCEDURES Final Result from Last 3 Months or Most Recently Relevant to Health Maintenance Insurance BL CHOICE PRF PPO NM [facility] Care Teams [employer] Relationship Specialty Start Date End Date Gene Kenyon MD PCP - General Family Practice 03/09/24 Remedios Springer NP [address] [place] [address] Nurse Practitioner Psychiatry 11/20/24
--- OUTSIDE RECORDS SUMMARY | 2024-12-25 01:43 | XMS_ITS | Referral Summary ---
Author Organization [facility] [address] [facility] [address] [place] [address] Care Team Providers Care Organ Recovery Coordinator Name Role Phone Gene Kenyon MD Primary Care Provider [phone] Remedios Springer NP Unavailable [phone] Encounters Date Type Department Care Team Description 12/13/2024 7:30 AM HAT RENOVATOR - 12/13/2024 9:30 AM HAT RENOVATOR Surgery [facility] OR [address] [place] [address] Trina Fabian MD HYSTEROSCOPY, DILATION WITH hydrothermal ablation, attempted NOVASURE ABLATION, 12/13/2024 7:29 AM HAT RENOVATOR Anesthesia Event [facility] OR [address] [place] [address] Marshall Farrell MD Boivin, James R., MD 12/13/2024 5:39 AM HAT RENOVATOR - 12/13/2024 12:17 PM HAT RENOVATOR Hospital Encounter [facility] OR [address] [place] [address] Trina Fabian MD History of menorrhagia; Admission for sterilization Discharge Disposition: Discharge to home or self care 12/11/2024 2:20 PM HAT RENOVATOR Pre-Admission Testing [facility] Pre Admit Testing [address] [place] [id number] Pre-op testing (Primary Dx) 11/13/2024 10:03 PM HAT RENOVATOR - 11/14/2024 [facility] Emergency Department [address] [place] [address] Vaginal bleeding (Primary Dx); Uterine mass; Ovarian mass Discharge Disposition: Discharge to home or self care from Last 3 Months Allergies Active Allergy Reactions Criticality Noted Date [...] major depression with psychotic features 07/25/2020 11/20/2024 Social History Tobacco Use Types Packs/Day Years [...] on file Legal Sex Female 8:34 PM HAT RENOVATOR Gender Identity Not on file Sexual Orientation Not on file Last Filed Vital Signs Vital Sign Reading Time Taken Comments Blood Pressure 122/82 12/13/2024 12:10 PM HAT RENOVATOR Pulse 85 12/13/2024 12:10 PM HAT RENOVATOR Temperature 36.8 C (98.2 F) 12/13/2024 10:40 AM HAT RENOVATOR Respiratory Rate 16 12/13/2024 12:1 0 PM HAT RENOVATOR Oxygen Saturation 98% 12/13/2024 12: 10 PM HAT RENOVATOR Inhaled Oxygen Concentration - - Weight 92.4 kg (203 lb 11.2 oz) 12/13/2024 5:49 AM HAT RENOVATOR Height 152.4 cm (5') 12/13/2024 5:49 AM HAT RENOVATOR Body Mass Index 39.78 12/13/2024 5:49 AM HAT RENOVATOR Plan of Treatment Not on file Procedures Procedure Name Priority Date/Time Associated Diagnosis Comments POCT GLUCOSE DEVICE Routine 12/13/2024 9 :29 AM HAT RENOVATOR SURGICAL PATHOLOGY Routine 12/13/2024 8: 12 AM HAT RENOVATOR History of menorrhagia Admission for sterilization IN AN PROCEDURE PLACEHOLDER Routine 12/13/2024 7:43 AM HAT RENOVATOR IN AN ELECTIVE ENDOTRACHEAL AIRWAY Routine 12/13/2024 7:43 AM HAT RENOVATOR LAPAROSCOPIC SALPINGECTOMY 12/13/2024 7:29 AM HAT RENOVATOR MENORRHAGIA,UNDESIR ED FERTILITY ABLATION UTERINE HYSTEROSCOPY - NOVASURE 12/13/2024 7:29 AM HAT RENOVATOR MENORRHAGIA,UNDESIR ED FERTILITY POCT GLUCOSE DEVICE Routine 12/13/2024 7 :20 AM HAT RENOVATOR POCT HCG, URINE Routine 12/13/2024 6:30 AM HAT RENOVATOR ANTIBODY SCREEN Routine 12/11/2024 2:39 PM HAT RENOVATOR Pre-op testing ABO/RH Routine 12/11/2024 2:39 PM HAT RENOVATOR Pre-op testing CBC WITHOUT DIFFERENTIAL Routine 12/11/2024 2:39 PM HAT RENOVATOR Pre-op testing TYPE AND SCREEN Routine 12/11/2024 2:39 PM HAT RENOVATOR Pre-op testing CT ABDOMEN PELVIS W CONTRAST ED 11/13/2024 11:05 PM HAT RENOVATOR POCT HCG, URINE Routine 11/13/2024 10:45 PM HAT RENOVATOR B ABO / RH CONFIRMATION TESTING STAT 11/13/2024 10:15 PM HAT RENOVATOR EGFR STAT 11/13/2024 7:39 PM HAT RENOVATOR DIFFERENTIAL AUTO STAT 11/13/2024 7:3 9 PM HAT RENOVATOR ANTIBODY SCREEN Timed 11/13/2024 7:39 PM HAT RENOVATOR ABO/RH Timed 11/13/2024 7:39 PM HAT RENOVATOR TYPE AND SCREEN Timed 11/13/2024 7:39 PM HAT RENOVATOR COMPREHENSIVE METABOLIC PANEL STAT 11/13/2024 7:39 PM HAT RENOVATOR CBC WITH AUTO DIFFERENTIAL STAT 11/13/2024 7:39 PM HAT RENOVATOR SCREENING MAMMOGRAM BILATERAL W EL Schedule Routine, Read Routine (OP Routine) 03/16/2024 2:59 PM CDT Encounter for other screening for malignant neoplasm of breast from Last 3 Months or Most Recently Relevant to Health Maintenance Results * POCT glucose (12/13/2024 9:29 AM HAT RENOVATOR) Glucose, POC 159 70 - 199 mg/dL Comment:Testing performed by : [facility], [address] [place] [address]., [address] Glucose comment 1 Use This Result CESAR PEREZ Comment:Testing performed by : [facility], [address] [place] [address], [place]., [address] Blood 12/13/2024 9:29 AM HAT RENOVATOR 12/13/2024 9:29 AM HAT RENOVATOR us Trina Fabian MD LAB POCT ORDERABLES - DEVICE Fi nal Result CES[facility] [address] Department [place] [address] * Surgical pathology (12/13/2024 8:12 AM HAT RENOVATOR) Tissue (Fallopian tube, sterilization) 12/13/2024 8:12 AM HAT RENOVATOR Narrative PATHOLOGY [facility] - 12/14/2024 4:25 PM HAT RENOVATOR [facility] Department of Pathology [address] [place] [address] Note to Patients: This report may contain [...] : 1975 (Age: 49) Gender: F Address: [address] [place] [address] Hospital #: [id number] Service: Surgery Location: Patient Type: [facility] OUTPATIENT Taken: 12/13/2024 Received: 12/13/2024 Accessioned: 12/13/2024 Reported: 12/14/2024 Physician(s): Trina Fabian M.D. Gene Kenyon M.D. Diagnosis: Fallopian tubes, bilateral, salpingectomy - [...] interpretation for this case was performed at [facility], Department of Surgical Pathology, [address] [facility] [place], [id number], [place] [id number] [facility] # [id number] us Trina Fabian MD LAB PATHOLOGY ORDERABLES Final Result PATHOLOGY [facility] * IN AN ELECTIVE ENDOTRACHEAL AIRWAY, IN AN PROCEDURE PLACEHOLDER (12/13/2024 7:43 AM HAT RENOVATOR) Narrative Tai Roberts CRNA - 12/13/2024 7:43 AM HAT RENOVATOR Tai Roberts CRNA 12/13/2024 7:43 AM Airway Patient location: OR Urgency: elective Indications for airway management: anesthesia Difficult airway: no Staff: Placed by: LEAD ACCOUNTANT: Tai Roberts CRNA Emergent airway documentation: Risks [...] other (pink tape) Number of attempts: 1 Marshall Farrell MD ANESTHESIA ORDERABLES Final Resu lt * POCT glucose (12/13/2024 7:20 AM HAT RENOVATOR) [facility] Glucose, POC 123 70 - 199 mg/dL Comment:Testing performed by : [address] [address] Blood 12/13/2024 7:20 AM HAT RENOVATOR 12/13/2024 7:20 AM HAT RENOVATOR Trina Fabian MD LAB POCT ORDERABLES - DEVICE Fi nal Result [place] [id number] [facility] Department [place] [address] * POCT hCG, urine (12/13/2024 6:30 AM HAT RENOVATOR) [facility] HCG, ur, POC Negative Negative Lot Number [id number] QC Backgroud Clear Acceptable QC Control Line Acceptable Urine 12/13/2024 6:30 AM HAT RENOVATOR Jemal Gong MD POINT OF CARE TEST ORDERABLES Final Result * ABO/Rh (12/11/2024 2:39 PM HAT RENOVATOR) [facility] ABO/Rh O Positive Comment:Testing performed by : [address] [address] Blood 12/11/2024 2:39 PM HAT RENOVATOR 12/11/2024 2:43 PM HAT RENOVATOR Narrative [facility]ES[facility] - 12/11/2024 3:27 PM HAT RENOVATOR PRE SURGICAL TESTING ONLY--12/13/2024-HYSTEROSCOPY, DILATION AND CURETTAGE WITH NOVASURE ABLATION: LAPAROSCOPIC BILATERAL SALPINGECTOMY: -Surgeons and Role: * Trina Fabian MD - Primary- Has the patient had Daratumumab or Isatuximab in the past 6 months?->Unknown Trina Fabian MD LAB BLOOD BANK TEST ORDERABLES Final Result [facility] [address] [facility] Department [place] [address] * CBC without differential (12/11/2024 2:39 PM HAT RENOVATOR) WBC 8.4 3.8 - 9.9 K/cumm Comment:Testing performed by : [address] [address] Hgb 13.2 11.9 - 15.5 g/dL CESAR Comment:Testing performed by : [address] [address] Hct 39.8 35.6 - 45.5 % CESAR Comment:Testing performed by : [address] [address] Plt 381 150 - 400 K/cumm CESAR Comment:Testing performed by : [address] [address] MPV 9.6 9.1 - 12.3 fL CESAR Comment:Testing performed by : [address] [address] RBC 4.73 3.90 - 5.20 M/cumm CESAR Comment:Testing performed by : [address] [address] MCV 84.1 81.3 - 96.4 fL CESAR Comment:Testing performed by : [address] [address] MCH 27.9 27.1 - 33.3 pg CESAR PEREZ Comment:Testing performed by : [address] [address] MCHC 33.2 32.3 - 35.7 g/dL CESAR PEREZ Comment:Testing performed by : [facility], [address] [place] [address]., [address] RDW CV 12.1 11.1 - 14.9 % CESAR Comment:Testing performed by : [facility], [address] [place] [address]., [address] RDW SD 36.7 35.7 - 48.1 fL CESAR Comment:Testing performed by : [address] [address] NRBC abs 0.00 0.00 - 0.01 K/cumm CESAR Comment:Testing performed by : [facility], [address] [place] [address], [address] Blood 12/11/2024 2:39 PM HAT RENOVATOR 12/11/2024 2:43 PM HAT RENOVATOR Narrative [facility] PEREZ - 12/11/2024 2:45 PM HAT RENOVATOR PRE SURGICAL TESTING ONLY--12/13/2024-HYSTEROSCOPY, DILATION AND CURETTAGE WITH NOVASURE ABLATION: LAPAROSCOPIC BILATERAL SALPINGECTOMY: -Surgeons and Role: * Trina Fabian MD - Primary-@ANPROCEDURE@ Trina Fabian MD LAB BLOOD ORDERABLES Final Resu lt [facility] [address] [facility] Department [place] [address] * Antibody screen (12/11/2024 2:39 PM HAT RENOVATOR) Luis Fernando, indirect, Gel Interpretation Negative ABSC Comment:Testing performed by : [address], [address] Blood 12/11/2024 2:39 PM HAT RENOVATOR 12/11/2024 2:43 PM HAT RENOVATOR Narrative CESAR - 12/11/2024 3:27 PM HAT RENOVATOR PRE SURGICAL TESTING ONLY--12/13/2024-HYSTEROSCOPY, DILATION AND CURETTAGE WITH NOVASURE ABLATION: LAPAROSCOPIC BILATERAL SALPINGECTOMY: -Surgeons and Role: * Trina Fabian MD - Primary- Has the patient had Daratumumab or Isatuximab in the past 6 months?->Unknown us Trina Fabian MD LAB BLOOD BANK TEST ORDERABLES Final Result [facility] [address] [facility] Department [place] [address] * CT Abdomen Pelvis W Contrast (11/13/2024 11:05 PM HAT RENOVATOR) Anatomical Region Laterality Modality Body N/A Computed Tomogra phy 11/13/2024 11:0 9 PM HAT RENOVATOR Narrative 11/13/2024 11:16 PM HAT RENOVATOR EXAM DESCRIPTION: CT ABDOMEN PELVIS W CONTRAST [...] ovarian cyst. Ovarian neoplasia is a concern. Explosive Ordnance Specialist evaluation of these findings is recommended. Simple appearing 4 cm cyst left lobe of the liver. THIS IS AN ELECTRONICALLY VERIFIED FINAL REPORT 11/13/2024 11:16 PM - Electronically signed by Lokesh Dotson M.D. KH: SONIA Report ID: [id number] Reading Location: [place] [address] Procedure Note Lokesh Dotson MD - 11/13/2024 [...] ovarian cyst. Ovarian neoplasia is a concern. Explosive Ordnance Specialist evaluation of these findings is recommended. Simple appearing 4 cm cyst left lobe of the liver. THIS IS AN ELECTRONICALLY VERIFIED FINAL REPORT 11/13/2024 11:16 PM - Electronically signed by Lokesh Dotson M.D. KH: SONIA Report ID: [id number] Reading Location: [place] [address] Luis A Guzman NP IMG CT PROCEDURES Final Result * POCT hCG, urine (11/13/2024 10:45 PM HAT RENOVATOR) Pathologist [facility] HCG, ur, POC Negative Negative Lot Number [id number] QC Backgroud Clear Acceptable QC Control Line Acceptable Urine 11/13/2024 10:4 5 PM HAT RENOVATOR Luis A Guzman NP POINT OF CARE TEST ORDERABLES Fi nal Result * ABO / Rh Confirmation Testing (11/13/2024 10:15 PM HAT RENOVATOR) ABO/Rh Confirmation O Positive [facility] Comment:Testing performed by : [address] [address] Blood 11/13/2024 10:1 5 PM HAT RENOVATOR 11/13/2024 10:20 PM HAT RENOVATOR Luis A Guzman NP LAB BLOOD ORDERABLES Final Resul t Performing Organization Address [facility] Co de Phone Number [id number] [employer] [place], [place] [id number] [facility]HB * eGFR (11/13/2024 7:39 PM HAT RENOVATOR) eGFR >90 >=60 mL/min/1. 73 m2 Comment: [...] was last reviewed 2021. Testing performed by: [facility], [address] [place] [address]., [address] Blood 11/13/2024 7:39 PM HAT RENOVATOR 11/13/2024 7:41 PM HAT RENOVATOR Luis A Guzman NP LAB BLOOD ORDERABLES Final Resul t Performing Organization Address City/[facility]/ZIP Co de Phone Number [address] [employer] [place], [place] [id number] * (ABNORMAL) Differential, auto (11/13/2024 7:39 PM HAT RENOVATOR) Neutrophil abs 6.8(H) 1.5 - 6.5 K/cumm Comment:Testing performed by : [address] [address] Imm gran abs 0.0 0.0 - 0.1 K/cumm [facility] Comment:Testing performed by : [address] [address] Lymphocyte abs 3.2 0.8 - 3.3 K/cumm [facility] Comment:Testing performed by : [address] [address] Monocyte abs 0.4 0.2 - 0.8 K/cumm [facility] Comment:Testing performed by : [address] [address] Eosinophil abs 0.2 0.0 - 0.5 K/cumm [facility] Comment:Testing performed by : [address] [address] Basophil abs 0.1 0.0 - 0.1 K/cumm [facility] Comment:Testing performed by : [address] [address] Neutrophil pct 63.6 % [facility] Comment: Interpretive Data Percent cell count reference ranges are not reported, since discordance with absolute values may lead to misinterpretation of CBC data. Current Interpretive Data was last revised on 2018. Testing performed by: [address] [address] Imm gran pct 0.4 % CERNER Comment: Interpretive Data Percent cell count reference ranges are not reported, since discordance with absolute values may lead to misinterpretation of CBC data. Current Interpretive Data was last revised on 2018. Testing performed by: [address] [address] Lymphocyte pct 29.5 % CERNER Comment: Interpretive Data Percent cell count reference ranges are not reported, since discordance with absolute values may lead to misinterpretation of CBC data. Current Interpretive Data was last revised on 2018. Testing performed by: [address] [place]., [address] Monocyte pct 3.7 % CESAR Comment: Interpretive Data Percent cell count reference ranges are not reported, since discordance with absolute values may lead to misinterpretation of CBC data. Current Interpretive Data was last revised on 2018. Testing performed by: [address] [address] Eosinophil pct 2.1 % CESAR PEREZ Comment: Interpretive Data Percent cell count reference ranges are not reported, since discordance with absolute values may lead to misinterpretation of CBC data. Current Interpretive Data was last revised on 2018. Testing performed by: [address] [address] Basophil pct 0.7 % CESAR Comment: Interpretive Data Percent cell count reference ranges are not reported, since discordance with absolute values may lead to misinterpretation of CBC data. Current Interpretive Data was last revised on 2018. Testing performed by: [address] [address] Blood 11/13/2024 7:39 PM HAT RENOVATOR 11/13/2024 7:41 PM HAT RENOVATOR Luis A Guzman NP LAB BLOOD ORDERABLES Final Resul t [facility] [address] [facility] Department [place] [address] * (ABNORMAL) CBC with auto differential (11/13/2024 7:39 PM HAT RENOVATOR) WBC 10.7(H) 3.8 - 9.9 K/cumm Comment:Testing performed by : [address] [address] Hgb 12.5 11.9 - 15.5 g/dL CESAR PEREZ Comment:Testing performed by : [address] [address] Hct 37.9 35.6 - 45.5 % CESAR PEREZ Comment:Testing performed by : [address] [address] Plt 354 150 - 400 K/cumm CESAR PEREZ Comment:Testing performed by : [address] [address] MPV 9.9 9.1 - 12.3 fL CESAR PEREZ Comment:Testing performed by : [address] [address] RBC 4.39 3.90 - 5.20 M/cumm CESAR PEREZ Comment:Testing performed by : [address] [address] MCV 86.3 81.3 - 96.4 fL CESAR Comment:Testing performed by : [address] [address] MCH 28.5 27.1 - 33.3 pg CESAR Comment:Testing performed by : [address], [address] MCHC 33.0 32.3 - 35.7 g/dL CESAR Comment:Testing performed by : [address], [address] RDW CV 12.2 11.1 - 14.9 % CESAR Comment:Testing performed by : [address] [address] RDW SD 38.4 35.7 - 48.1 fL CESAR Comment:Testing performed by : [address] [address] NRBC abs 0.00 0.00 - 0.01 K/cumm [facility] Comment:Testing performed by : [address] [address] Blood 11/13/2024 7:39 PM HAT RENOVATOR 11/13/2024 7:41 PM HAT RENOVATOR us Luis A Guzman NP LAB BLOOD ORDERABLES Final Resul t [facility] [address] [facility] Department of Laboratories [place], [place] [id number] * ABO/Rh (11/13/2024 7:39 PM HAT RENOVATOR) ABO/Rh O Positive Comment:Testing performed by : [address] [address] Blood 11/13/2024 7:39 PM HAT RENOVATOR 11/13/2024 7:41 PM HAT RENOVATOR Narrative CESAR - 11/13/2024 8:50 PM HAT RENOVATOR Has the patient had Daratumumab or Isatuximab in the past 6 months?->Unknown [facility] LAB BLOOD BANK TEST ORDERABLES F inal Result Performing Organization Address [facility] de Phone Number [address] [place] [employer] [address] * Antibody screen (11/13/2024 7:39 PM HAT RENOVATOR) Pathologist [facility] Luis Fernando, indirect, Gel Interpretation Negative [facility]SC Comment:Testing performed by : [address] [address] Blood 11/13/2024 7:39 PM HAT RENOVATOR 11/13/2024 7:41 PM HAT RENOVATOR Narrative [facility] - 11/13/2024 8:50 PM HAT RENOVATOR Has the patient had Daratumumab or Isatuximab in the past 6 months?->Unknown [facility] LAB BLOOD BANK TEST ORDERABLES F inal Result Performing Organization Address [facility] de Phone Number [address] [address] * Comprehensive metabolic panel (11/13/2024 7:39 PM HAT RENOVATOR) Sodium 139 135 - 145 mmol/L Comment:Testing performed by : [address] [address] Potassium, pl 3.7 3.3 - 4.9 mmol/L CESAR PEREZ Comment:Testing performed by : [address] [address] Chloride 105 97 - 110 mmol/L CESAR Comment:Testing performed by : [address] [address] CO2 22 22 - 32 mmol/L CESAR Comment:Testing performed by : [address] [address] Anion gap 12 2 - 15 mmol/L CESAR Comment:Testing performed by : [address] [address] BUN 16 6 - 25 mg/dL CESAR Comment:Testing performed by : [address] [address] Creatinine 0.70 0.60 - 1.10 mg/dL CESAR Comment:Testing performed by : [address] [address] Glucose 191 70 - 199 mg/dL [facility] Comment: Interpretive Data Fasting glucose >/= 126 [...] was last revised 2022. Testing performed by: [address] [address] Calcium 9.1 8.5 - 10.3 mg/dL CESAR Comment:Testing performed by : [address] [address] Bilirubin, total 0.3 0.1 - 1.2 mg/dL [facility] Comment:Testing performed by : [address] [address] Protein, pl 7.4 6.5 - 8.5 g/dL CESAR Comment:Testing performed by : [address] [address] Albumin 4.3 3.5 - 5.0 g/dL CESAR Comment:Testing performed by : [address] [address] Alk phos 68 40 - 130 Units/L CESAR Comment:Testing performed by : [facility], [address] [place] [address]., [address] ALT 26 7 - 45 Units/L CESAR PEREZ Comment:Testing performed by : [address] [address] AST 20 10 - 45 Units/L CESAR PEREZ Comment:Testing performed by : [address] [address] Blood 11/13/2024 7:39 PM HAT RENOVATOR 11/13/2024 7:41 PM HAT RENOVATOR us Luis A Guzman NP LAB BLOOD ORDERABLES Final Resul t [facility]AR PEREZ [address] [facility] Department [place] [address] * Screening Mammogram Bilateral W El (03/16/2024 [...] age 39, based on guidelines of the [employer] (ACR Practice Parameter for the Performance of Screening and Diagnostic Mammography) and [employer]. For women [...] suspicious finding in either breast on mammogram. Jackie Walker NP IMG MAMMO PROCEDURES Final Result from Last 3 Months or Most Recently Relevant to Health Maintenance Insurance [facility] Care Teams Organ Recovery Coordinator Relationship Specialty Start Date End Date Gene Kenyon MD PCP - General Family Practice 03/09/24 Remedios Springer NP [address] [place] [address] Nurse Practitioner Psychiatry 11/20/24
--- OUTSIDE RECORDS SUMMARY | 2024-12-25 01:43 | XMS_ITS | Clinical Summary ---
Author Organization [facility] Address [address] [place] [phone] Phone Care Team Providers Care Bath Tester Name Role Phone Unavailable Primary Care Provider Unavailabl e Social History Tobacco Use Types Packs/Day Years Used Date Smoking Tobacco: Never Assessed Comments Unknown Sex and Gender Information Value Date Recorded Sex Assigned at Not on file Legal Sex Female 10:58 AM CDT Gender Identity Not on file Sexual Orientation Not on file Plan of Treatment Health Maintenance Due Date Last Done Comments DTAP/TDAP/TD VACCINES (1 - Tdap) 1993 HEPATITIS B VACCINES (1 of 3 - 19+ 3-dose series) 04/16 CERVICAL CANCER SCREENING 2004 BREAST CANCER SCREENING 2014 COLORECTAL SCREENING 2019 Colorectal Cancer Screening 2019 FIT-DNA Q 3 years 2019 FIT/FOBT Q 1 year 2019 Flex Sig/CT Colonography Q 5 years 2019 ZOSTER VACCINE (1 of 2) 2024 INFLUENZA VACCINE (#1) 2024 Insurance [id number] BLUE ACCESS/TRUE BLUE PPO
--- OUTSIDE RECORDS SUMMARY | 2024-12-25 01:43 | XMS_ITS | Patient Health Record ---
Author Organization [facility] Address [address] [place] [address] Care Team Providers Care Sheep Rancher Name Role Phone Racheal Remedios Primary Care Provider [phone] Reason For Referral No Information Medications Medication SIG (Take, Route, Fr equency, Duration) Notes Start Date End Date Status ZyPREXA 10 MG 1 tablet Orally Once a day for 30 days 08/13/2021 Active Xanax 1 MG 1/2 tablet (0.5 MG) Orally Twice a day for 30 days 08/07/2021 Active ZyPREXA Zydis 10 MG 1 tablet on the tong ue and allow to dissolve Orally Once a day for 30 days Active Lexapro 20 MG 1 tablet Orally Once a day for 30 days Active LaMICtal 100 MG 1 tablet Orally Once a day for 30 days Active Social History Sex Assigned At : Social History Observation Description Sex Assigned At Female Problems Problem Type SNOMED Code ICD Code Onset Dates Problem Status W/U Status Risk Notes Problem [id number] JOVI (generalized anxiety disorder) (F41.1) Active confirmed Problem 177414048 Bipolar I disorder (F31.9) Active confirmed Encounters Encounter Location Date Provider Diagnosis [facility] [address] [address] 09/07/2024 Remedios [facility] [address], [place] [address] 10/17/2024 Remedios [facility] [address], [place] [address] 12/13/2024 Remedios Springer [facility] [address] [facility] [place] [address] 06/09/2024 Remedios Springer [facility] [address] [facility] [place] [address] 09/22/2024 Remedios Springer [facility] [address] [facility] [place] [address] 10/27/2024 Remedios Springer Plan Of Treatment Next Appt Details Provider Name:Remedios claudio, 12/29/2024 01:40:00 PM, [address], [place], [address], Insurance Providers Payer Name Payer Address Payer Phone Subscriber Number Group Number Insured Name Patient Relationship to Insured Coverage Start Date Coverage End Date [facility] [address] [place] [address] [id number] Gee-R oss, Nicole Self - patient is the insured 1 1 [facility] [address] [place] [address] [id number] Gee-R oss, Nicole Self - patient is the insured 4 [facility] [address] [place] [address] [id number] Gee-R oss, Nicole Self - patient is the insured 4 4 Medical (General) History Surgical History Surgery Date(Month/Year)
--- OUTSIDE RECORDS SUMMARY | 2024-12-25 01:43 | XMS_ITS ---
Author Organization [facility] Address [address] [place] [address] Care Team Providers Care Seasoning Sprayer Name Role Phone Remedios Springer Primary Care Provider REASON FOR VISIT Message Social History Sex Assigned At : Social History Observation Description Sex Assigned At Female Encounters Encounter Location Date Provider Diagnosis [facility] [address] [place] [address] 12/13/2024 Remedios Springer Plan Of Treatment Next Appt Details Provider Name:Remedios claudio, 12/29/2024 01:40:00 PM, [address], [place], [address], Progress Notes * Marlin WHEELEROB:[birth year] (49 yo F)Acc No.[id number]:12/13/2024 Patient: Juarez Nicole CROCKETT :1975 A ge:49 Y S ex:Female Address:[address], [place], [address] * true * Date: Generated for Vineet overton/Emmy/eTransmitting on: 0 12/25/2024 01:43 AM INPATIENT PHARMACIST
--- OUTSIDE RECORDS SUMMARY | 2024-12-25 01:43 | XMS_ITS ---
Author Organization [facility] Address [address] [place] [address] Care Team Providers Care [employer] Name Role Phone Remedios Springer Primary Care Provider Social History Sex Assigned At : Social History Observation Description Sex Assigned At Female Encounters Encounter Location Date Provider Diagnosis [facility] [address] [place] [address] 10/17/2024 Remedios Springer Plan Of Treatment Next Appt Details Provider Name:Remedios claudio, 12/29/2024 01:40:00 PM, [address] [place] [address], [place], [address], Progress Notes * Marlin WHEELEROB:[birth year] (49 yo F)Acc No.[id number]:10/17/2024 Patient: Juarez Nicole CROCKETT :1975 A ge:49 Y S ex:Female Address:[address], [address], [place], [address] * true * Date: Generated for Lucioi ng/Fajuanjog/eTransmitting on: 0 12/25/2024 01:42 AM FUNCTIONAL TESTER TYPEWRITERS
--- NOTE | 2024-12-25 07:13 | P.PNAN_ITS ---
Anes - Initial Pre Proc Eval Procedure: Operation Date: 12/25/24 08:30 Proposed Procedures p Screening Colonoscopy - Kip Bardales DO Date/Time: 12/25/24 07:13 Surgeon: Kip Bardales DO Pre Op Diagnosis: Screening for malignant neoplasm of colon Patient Data Age: 49 Gender: F Height: 1.52 m Weight: 90 kg Allergies Allergy/AdvReac Type Severity Reaction Status Date / Time cephalexin (From Keflex) Allergy unknown Verified 12/25/24 07:34 Penicillins Allergy Unknown Verified 12/25/24 07:34 Home Medications ?Medication ?Instructions ?Recorded ?Confirmed ?Type omeprazole 40 mg capsule,delayed 40 mg PO DAILY #90 caps 05/17/24 12/25/24 Rx release metformin 1,000 mg tablet 1,000 mg PO BID #180 tabs 05/31/24 12/25/24 Rx atorvastatin 10 mg tablet 10 mg PO DAILY #90 tabs 07/18/24 12/25/24 Rx blood-glucose meter,continuous #1 ea 08/03/24 11/22/24 Rx (FreeStyle Luly 3 [place]) blood-glucose sensor (FreeStyle #6 ea 08/03/24 11/22/24 Rx Luly 3 Sensor device) hydroxyzine HCl 25 mg tablet See Rx Instructions .Route 09/13/24 12/08/24 Rx .COMPLEX #90 tabs ondansetron 4 mg disintegrating See Rx Instructions .Route 10/05/24 12/08/24 Rx tablet .COMPLEX #30 tabs alprazolam 1 mg tablet 1 mg PO BID PRN anxiety #60 tabs 11/10/24 12/08/24 Rx escitalopram oxalate 20 mg tablet 20 mg PO DAILY 11/22/24 12/25/24 History (Lexapro) dulaglutide 4.5 mg/0.5 mL 4.5 mg (0.5 mL) subcut WEEKLY #2 mL 12/06/24 12/08/24 Rx subcutaneous pen injector (Trulicity) Patient hx anesthesia problems: none Family hx anesthesia problems: none Results Review: All pre-operative results and documents have been reviewed as part of the pre- operative evaluation. [facility] Past Medical History Medical History Anxiety disorder due to general medical condition with panic attack Obesity Type 2 diabetes mellitus PTSD (post-traumatic stress disorder) Bipolar disorder Cystitis Cystitis Urinary tract infection symptoms Social History Social History Smoking packs per day: 0.5 Smoking cigarettes per day: 10.0 Years smoked: 20 Smoking pack-years: 10.00 Smoking status: Former smoker Tobacco type: cigarettes Second hand tobacco smoke exposure: No Alcohol intake: current Drinks per week: 2 Substance use: never Substance use type: does not use Living arrangements: alone Occupation/Education: student Spiritual care concerns: No Anes - Eval Final PreProcedure Day of Procedure 12/25/24 07:13 Patient weight: obese Heart: regular rate and rhythm Lungs: clear to auscultation Airway: Mallampati scale class III Neurological: alert and oriented Last oral intake: >/= 8 hours ASA classification: III Emergent: no Anesthetic plan: proceed Anesthesia type and monitoring: general GIVS and standard monitoring Results Review: All pre-operative results and documents have been reviewed as part of the pre- operative evaluation. Informed Consent: The patient's anesthetic plan and its attendant risks and benefits were discussed with the patient/family/POA. Questions were solicited and answers provided to the satisfaction of the patient/family/POA.
--- NOTE | 2024-12-25 07:30 | SUR.PREOP ---
Patient glucose in pre op 137 per dexcom monitor.
[2024-12-25 07:35] VITALS: BP 148/84; PULSE 89; RESP 18; TEMP 36.1; O2SAT 100; BMI 39.9
--- NOTE | 2024-12-25 07:35 | SUR.PREOP ---
Patient reports having a tubal 3 weeks ago, prefers to not provide urine sample for bedside . Dr. Lyn notified and received verbal okay for no bedside .
[2024-12-25] MEDS: LACTATED RINGERS 1,000 ML 150 ML IV CONT (07:44)
--- NOTE | 2024-12-25 08:29 | PM.IMHP ---
H&P: HPI History of Present Illness Date/Time: 12/25/24 08:29 Chief Complaint: screening for colorectal cancer Narrative: this is a 49-year-old woman who presents for colonoscopy. She has never had a colonoscopy before. She denies any hematochezia melena. She denies any family history of colon cancer. Review of Systems Review of Systems: All systems reviewed & are unremarkable except as noted in HPI and below Constitutional: Constitutional: Denies chills, Denies fever(s), Denies headache(s) and Denies weight loss Eyes: Eyes: Denies change in vision ENT: Denies dizziness, Denies headache(s), Denies neck mass and Denies throat swelling Cardiovascular: Cardiovascular: Denies chest pain, Denies lightheadedness and Denies dyspnea Respiratory: Respiratory: Denies cough, Denies dyspnea and Denies wheezing Gastrointestinal: Gastrointestinal: Denies abdominal pain, Denies change in bowel habits, Denies nausea and Denies vomiting Genitourinary: Genitourinary: Denies hematuria and Denies dysuria Musculoskeletal: Musculoskeletal: Reports as per HPI Integumentary/Breasts: Skin/Breast: Reports as per HPI Neurologic: Denies dizziness and Denies headache(s) Allergic/Immunologic: Allergic/Immunologic: Denies throat swelling and Denies wheezing [facility] Past Medical History Medical History (Updated 12/25/24 @ 08:30 by Kip Bardales DO) Anxiety disorder due to general medical condition with panic attack Obesity Type 2 diabetes mellitus PTSD (post-traumatic stress disorder) Bipolar disorder Cystitis Cystitis Urinary tract infection symptoms Social History Social History Smoking packs per day: 0.5 Smoking cigarettes per day: 10.0 Years smoked: 20 Smoking pack-years: 10.00 Smoking status: Former smoker Tobacco type: cigarettes Second hand tobacco smoke exposure: No Alcohol intake: current Drinks per week: 2 Substance use: never Substance use type: does not use Living arrangements: alone Occupation/Education: student Spiritual care concerns: No Meds Home Medications and Allergies Home Medications ?Medication ?Instructions ?Recorded ?Confirmed ?Type omeprazole 40 mg capsule,delayed 40 mg PO DAILY #90 caps 05/17/24 12/25/24 Rx release metformin 1,000 mg tablet 1,000 mg PO BID #180 tabs 05/31/24 12/25/24 Rx atorvastatin 10 mg tablet 10 mg PO DAILY #90 tabs 07/18/24 12/25/24 Rx blood-glucose meter,continuous #1 ea 08/03/24 11/22/24 Rx (FreeStyle Luly 3 [place]) blood-glucose sensor (FreeStyle #6 ea 08/03/24 11/22/24 Rx Luly 3 Sensor device) hydroxyzine HCl 25 mg tablet See Rx Instructions .Route 09/13/24 12/08/24 Rx .COMPLEX #90 tabs ondansetron 4 mg disintegrating See Rx Instructions .Route 10/05/24 12/08/24 Rx tablet .COMPLEX #30 tabs alprazolam 1 mg tablet 1 mg PO BID PRN anxiety #60 tabs 11/10/24 12/08/24 Rx escitalopram oxalate 20 mg tablet 20 mg PO DAILY 11/22/24 12/25/24 History (Lexapro) dulaglutide 4.5 mg/0.5 mL 4.5 mg (0.5 mL) subcut WEEKLY #2 mL 12/06/24 12/08/24 Rx subcutaneous pen injector (Trulicity) Allergies Allergy/AdvReac Type Severity Reaction Status Date / Time cephalexin (From Keflex) Allergy unknown Verified 12/25/24 07:34 Penicillins Allergy Unknown Verified 12/25/24 07:34 Vital Signs Vital Signs - 24 hr 12/25/24 07:35 Temperature 97 F L Pulse Rate 89 Respiratory Rate 18 Blood Pressure 148/84 H Pulse Oximetry 100 Oxygen Delivery Room Air Exam Const: General: no acute distress and alert Orientation/consciousness: patient oriented x3 HENMT: Head: normocephalic and atraumatic Ears: hearing grossly normal bilaterally Face/Nose/Sinus: Normal nares present Mouth: Yes Normal oral and palatal mucosa present Eyes: Periorbital: periorbital findings normal Sclera: sclerae normal EOM: EOMs intact bilaterally Neck: Neck: normal visual inspection, no lymphadenopathy and trachea midline Chest: Chest palpation & inspection: normal inspection of the chest Resp: Effort & Inspection: normal respiratory effort Auscultation: clear to auscultation bilaterally Cardio: Jugular venous distension: no JVD Rate: regular rate Rhythm: regular rhythm Heart sounds: S1 normal heart sound present and S2 normal heart sound present Peripheral pulses: Peripheral pulses 2+ throughout GI: Inspection: normal to inspection GI Palp: Yes Soft to palpation, No Tenderness to palpation present (GI), No Guarding due to palpation present (GI) and No Rebound tenderness present Percussion: Yes normal to percussion Auscultation: normal bowel sounds : General: Yes no CVA tenderness Back/Spine/Pelvis: Back: no CVA tenderness Neuro: General: patient oriented x3, no focal motor deficits and CN's II-XI intact bilaterally Cognition (Neuro): normal cognition Speech: normal speech Motor exam (neuro): 5/5 motor strength present throughout Extrem: General: capillary refill normal and no clubbing, cyanosis or edema Assessment and Plan Assessment and plan (1) Screening for colorectal cancer: Code(s): Z12.11 - Encounter for screening for malignant neoplasm of colon; Z12.12 - Encounter for screening for malignant neoplasm of rectum Status: Acute Assessment and Plan: I have recommended colonoscopy. I have discussed the procedure, risks, benefits, and alternatives. Questions were answered. Patient is agreeable to proceed.
[2024-12-25 08:58] VITALS: BP 122/76; PULSE 83; RESP 16; O2SAT 98
[2024-12-25 09:08] VITALS: BP 107/59; PULSE 79; RESP 17; O2SAT 97
[2024-12-25 09:18] VITALS: BP 113/65; PULSE 70; RESP 17; O2SAT 97
[2024-12-25 09:28] VITALS: BP 107/80; PULSE 74; RESP 18; O2SAT 98
== END 2024-12-25 09:52 | disposition home or self-care (01) ==
PROVIDERS: PCP Family Medicine; Visit Provider Surgery
PROC: 0DJD8ZZ Inspection of Lower Intestinal Tract, Via Natural or Artificial Opening Endoscopic (ICD-10-PCS; CPT 45378; principal; 2024-12-25 08:30)
DX: Z12.11 Encounter for screening for malignant neoplasm of colon (principal); K64.8 Other hemorrhoids; F41.9 Anxiety disorder, unspecified; E11.9 Type 2 diabetes mellitus without complications; F43.10 Post-traumatic stress disorder, unspecified; F31.9 Bipolar disorder, unspecified; E66.9 Obesity, unspecified; Z68.39 Body mass index [BMI] 39.0-39.9, adult; Z79.84 Long term (current) use of oral hypoglycemic drugs; Z79.85 Long-term (current) use of injectable non-insulin antidiabetic drugs; Z87.891 Personal history of nicotine dependence
CPT/HCPCS: 45378; J2704; J7120